=== PATIENT | male | born 1995 | race Caucasian/White ===

== ENCOUNTER 2018-12-09 01:22 | Emergency (ER) | payer OTHER, BC ==
[2018-12-09 01:34] VITALS: BP 171/118; PULSE 127
[2018-12-09] MEDS ORDERED: Ondansetron 4 MG/2 ML SDV IVPUSH ONE (01:45)
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
--- NOTE | 2018-12-10 08:44 | CT ---
Head CT Technique: Multiple axial sections through the brain were obtained. Intravenous contrast was not utilized. Comparison: No prior intracranial imaging. Findings: Ventricles along with basal cisterns and sulci over the convexities appear within normal limits. No abnormal parenchymal densities are seen. No evidence of intracranial hemorrhage. No midline shift or mass effect is seen. Bone window settings show mucosal thickening throughout the paranasal sinuses with fluid also seen within the right maxillary sinus. Mastoid sinuses are clear. No acute calvarial abnormality is seen. Impression: 1. Sinus findings as noted above most likely due to pre-existing acute sinusitis. 2. No acute intracranial abnormality is otherwise seen. Diagnostic code #3 I agree with preliminary report from [facility], finalized on 12/09/18, 3:21 AM Central Time
--- NOTE | 2018-12-10 08:44 | CT ---
CT cervical spine Technique: Multiple axial sections were obtained from above C1 inferiorly to the mid T2 level. Reconstructed sagittal and coronal images were reviewed. Comparison: No prior cervical spine imaging. Findings: Opacified sphenoid sinus, right maxillary sinus and visualized ethmoid sinuses are noted. Mastoid sinuses are clear. Vertebral body heights and disc spaces are maintained. Vertebral bodies and posterior arches are intact with no fracture being seen. No bony central or bony neural foraminal stenosis is seen. No abnormal subluxation is seen on the reconstructed sagittal images. Impression: 1. Sinus findings are partially visualized. Difficult to exclude pre-existing acute sinusitis. Please correlate with the patient's symptoms. 2. Nothing acute is otherwise seen on CT study of the cervical spine. Diagnostic code #3 I agree with preliminary report from [facility], finalized on 12/09/18, 3:23 AM Central Time, code #2
== END 2018-12-09 02:57 | disposition home or self-care (01) ==
LOC: JD.ED 01:22
DX: S06.0X9A Concussion with loss of consciousness of unspecified duration, initial encounter (principal); S16.1XXA Strain of muscle, fascia and tendon at neck level, initial encounter; Z88.8 Allergy status to other drugs, medicaments and biological substances; Y04.0XXA Assault by unarmed brawl or fight, initial encounter
CPT/HCPCS: 70450; 72125; 96374; 99284; J2405; 99283